=== PATIENT | male | born 1950 | race Caucasian/White ===

== ENCOUNTER 2016-11-26 10:13 | Emergency (ER) | payer OTHER ==
[2016-11-26 10:30] VITALS: BP 138/81; PULSE 57; RESP 16; TEMP 98.4; O2SAT 94
--- NOTE | 2016-11-26 11:24 | UCPHY ---
H & P Time Seen by Provider: 11/26/16 11:13 Patient Type: Established HPI/ROS: This patient presents with a chief complaint of bilateral lower extremity swelling which began approximately 2 weeks ago and after he was taken off his spironolactone because of hyperkalemia. He describes mild discomfort in the lower extremities but has no other symptoms such as shortness of breath. Recent laboratory studies have been unremarkable. Specifically his potassium was normal on the of this month. Smoking Status: Never smoked Physical Exam: This is a well-developed well-nourished male who is in no acute distress. Vital signs are recorded on the triage record. Chest: Breath sounds are clear and symmetric without rales. Back: There is no presacral edema. Lower extremities: There is moderate pitting edema with some mild changes of chronic venous stasis. There is no significant tenderness. CMS is intact distally. Constitutional: Initial Vital Signs Temperature (C) 36.9 C 11/26/16 10:26 Heart Rate 57 L 11/26/16 10:26 Respiratory Rate 16 11/26/16 10:26 Blood Pressure 138/81 H 11/26/16 10:26 O2 Sat (%) 94 11/26/16 10:26 O2 Delivery Mode Room Air Allergies/Adverse Reactions: No Known Allergies Allergy (Unverified 11/26/16 10:30) Home Medications: Medication Instructions Recorded Aspirin [Dayron Chewable] 81 mg PO DAILY 04/15/15 Carvedilol [Coreg] 12.5 mg PO 04/15/15 Cholecalciferol (Vitamin D3) 50,000 unit PO 04/15/15 [Vitamin D3] Clonidine HCl 0.2 mg PO BID 04/15/15 Enalapril Maleate 20 mg PO 04/15/15 Insulin Glargine,Hum.rec.anlog 28 unit SQ 04/15/15 [Lantus Solostar] NIFEdipine [Nifedical Xl] 60 mg PO 04/15/15 [place]-3/Dha/Epa/Fish Oil [Fish Oil] 1,000 mg PO 04/15/15 Rosuvastatin Calcium [Crestor 10mg 10 mg PO DAILY 04/15/15 (RX)] Furosemide [Lasix 20 MG (*)] 20 mg PO DAILY #2 tab 11/26/16 Medical Decision Making Differential Diagnosis: I do not believe this patient's edema is related to any serious problem such as congestive heart failure or acute renal failure based on examination previous laboratory studies. I feel that 2 doses of Lasix would be safe but also believe that this problem should be managed by his technical producer. Departure - Departure Disposition: Home, Routine, Self-Care Clinical Impression: Pedal edema Condition: Good Instructions: Leg Edema (ED) Additional Instructions: You should follow-up with your technical producer early next week For further management of this problem. Keep your legs elevated as much infrequently as possible. Activity as tolerated. Prescriptions: Furosemide [Lasix 20 MG (*)] 20 mg PO DAILY #2 tab - PQRS PQRS Measurement: Not applicable
== END 2016-11-26 11:33 | disposition home or self-care (01) ==
LOC: CED 10:13
DX: R60.0 Localized edema (principal); E87.5 Hyperkalemia
CPT/HCPCS: 99214-PO; G0463-PO

== ENCOUNTER → 2017-01-17 | Outpatient (CLI) | payer OTHER | LOC: CIMAGING 07:50 | PROVIDERS: ATTEND Internal Medicine Nephrology | DX: N18.3 Chronic kidney disease, stage 3 (moderate) (principal) | CPT/HCPCS: 76770-PO ==